=== PATIENT | male | born 1965 | race Two or more races ===

== ENCOUNTER → 2024-12-25 | Day surgery (SDC) | payer MEDICAID ==
[2024-12-24 14:41] LABS: Urine Bacteria None Seen /hpf (None Seen)
[2024-12-24 14:43] LABS: Basophils # (auto) 0 10 ^3/uL (0-0.2); Basophils % (auto) 0.7 % (0.0-2.0); Eosinophils # (auto) 0.1 10 ^3/uL (0-0.8); Eosinophils % (auto) 1.8 % (0.0-7.0); Hematocrit 44.9 % (41.0-53.0); Hemoglobin 15.4 g/dL (13.5-17.5); Lymphocytes # (auto) 1.5 10 ^3/uL (0.4-5.4); Lymphocytes % (auto) 30.7 % (10.0-50.0); Mean Corpuscular Hemoglobin 30.3 pg (28.0-32.0); Mean Corpuscular Hgb Conc. 34.2 g/dL (32.0-36.0); Mean Corpuscular Volume 88.6 fL (80.0-100.0); Monocytes # (auto) 0.3 10 ^3/uL (0-1.3); Monocytes % (auto) 6.5 % (0.0-12.0); Neutrophils # (auto) 2.9 10 ^3/uL (1.6-8.6); Neutrophils % (auto) 60.3 % (37.0-80.0); Nucleated Red Blood Cells % 0.1 %; Platelet Count (auto) 188 10^3/uL (140-450); Red Blood Cells 5.07 10^6/uL (4.5-5.90); Red Cell Distribution Width 13.6 % (11.8-14.3); White Blood Cell 4.8 10^3/uL (4.4-10.8)
[2024-12-24 14:49] LABS: Urine Blood Negative /uL (Negative); Urine Clarity Clear (Clear); Urine Color Light-Yellow (Yellow); Urine Protein, UAD Negative (Negative); Urine Specific Gravity 1.007 (1.001-1.035); Urine Squamous Epithelial Cell None Seen /hpf (<5); Urine Urobilinogen Normal (Negative); Urine WBC < 1 /HPF (0-3); Urine pH 5.5 (5.0-9.0)
[2024-12-24 14:59] LABS: INR 0.98 (0.9-1.15); Partial Thromboplastin Time 25.9 SEC (24.5-34.5); Prothrombin Time 10.4 sec (9.3-11.8)
[2024-12-24 15:45] LABS: Alanine Aminotransferase 34 U/L (7-40); Alkaline Phosphatase 57 U/L (46-116); Anion Gap 8 (5-15); Aspartate Aminotransferase 21 U/L (13-40); BUN/Creatinine Ratio 12.4 (10.0-20.0); Bilirubin, Total 0.5 mg/dL (0.2-1.0); Blood Urea Nitrogen 13 mg/dL (9-23); Chloride 103 mmol/L (98-107); Glucose 91 mg/dL (74-106); Potassium 4.3 mmol/L (3.5-5.1); Sodium 142 mmol/L (136-145); Total Protein 7.3 g/dL (5.7-8.2)
[2024-12-24 15:53] LABS: Carbon Dioxide 31 mmol/L (20-31)
[~2024-12-25] VITALS: Ht 180.3 cm; Wt 94.8 kg
[~2024-12-25] MED LIST: ACETAMINOPHEN IV 1000 MG/100ML (10MG/ML) IV PRN; ATOR20TA50 PO; BACITRACIN TOP OINT 1 UD PKG TOP ONE; CHOL200064 PO; DexAMETHasone SOD PHOS 10MG/1ML VIAL INJ ONE; HYDROmorphone HCL 2 MG/ML VL/or syr IV PRN; MEPERIDINE HCL (25 MG/ML) 1ML VIAL IV PRN; METF-489 PO; ONDANSETRON HCL 4 MG/2 ML VIAL IV ONE; ONDANSETRON HCL 4 MG/2 ML VIAL ONE; PROPOFOL 10 MG/ML 20 ML IV ONE; fentaNYL CITRATE 100 MCG/2 ML VL ONE
[2024-12-25] MEDS: ceFAZolin 2 GM/D5W50ml 50 ML IV ONE (11:30)
[2024-12-25] MEDS: LIDOCAINE W/ EPINEPHRINE 1% 20ML VIAL ONE (11:50)
[2024-12-25 11:58] VITALS: PULSE 70; RESP 10; TEMP 98.8; O2SAT 99
--- NOTE | 2024-12-25 12:04 | DVHNC2 ---
Procedure - OPERATIVE REPORT Pre-op. Diagnosis: Male Desired Sterilization Post-op. Diagnosis: Same as pre-op diagnosis Operation: Bilateral Vasectomy (No scalpel technique) Anesthesia: General Indications: INDICATION: Male Desired Sterilization CONSENT: The procedure was explained. Complications including but not limited to infection, bleeding, post-procedural swelling, potential for re-establishment of vas continuity and return of fertility were discussed. Informed consent was obtained. Details of Procedure: The patient was placed supine and general anesthesia is admininstered. His genitals were shaved, prepped, and draped in the surgical standard fashion. Using sterile techniques, bilateral vasectomy was performed using a non-scalpel technique after administration of local anesthetic using 1% Lidocaine with Epi. Both Vas Deferens were identified, brought to the surface of scrotal skin through midline puncture site, grasped, doubly clipped and ligated, the edges were fulgurated. Layer of adventitial tissue is placed between the two ends of the divided vas deferens. Hemostasis was obtained and both ends of the vas were returned to their respected locations inside the nica-scrotum. The skin puncture site is left open. Specimens: Bilateral Vas Segments Complications: None Findings: N/A Notes: DISPOSITION: Patient tolerated the procedure well and was discharged home. He will be prophylactically treated with appropriate antibiotics for 5-days. He has been instructed to refrain from sexual activity for 7-days, use scrotal support, and to apply ice pack to both nica-scrotum for 36-48 hours. He is then instructed to engage in at least 20 episodes of sexual ejaculatory episodes before obtaining a sperm analysis during a course of 4-6 weeks. Once he has been confirmed to have zero sperms count, he will then be considered sterile but he is required to use contraception until such time. Patient understands and will follow-up accordingly. Visit Code: Procedure Codes: 32788 VASECTOMY BILATERAL. notesEligibility :2024-12-24 @ 21:30:48 PDT : Cannot Process;. SAM IBANEZ MD December 25, 2024 12:04
--- NOTE | 2024-12-25 12:05 | DVHDS2 ---
New Physician D'charge PN Admitting Diagnosis Admitting Diagnosis vas consult Discharge Diagnosis same Operations or Procedures vasectomy Reason(s) For Hospitalization Surgery Treatment Plan Discharge Condition of Discharge Fair Disposition Home Discharge Instructions Diet: Regular Activity: Light activity Activity comment: Scrotal support x1 week No sexual activity x1 week Medications: Given Follow Up Care Follow Up/Referral: Two months for sperm count Discharge Statement: "Patient was advised to return to the ER or call 911 if any headaches, dizziness, shortness of breath, chest pain, abdominal pain, bleeding, fevers, or worsening of medical condition. Patient was counseled about treatment plan, medications, possible side effects, patient�verbalized understanding. All questions were answered to the best of my ability. This discharge took greater then 30 minutes in planning, reviewing documentation, counseling the patient, and discussing with other team members." SAM IBANEZ MD December 25, 2024 12:05
[2024-12-25 12:28] VITALS: BP 119/69; PULSE 61; RESP 16; O2SAT 96
== END | disposition home or self-care (01) ==
LOC: SUR 09:30
PROVIDERS: ATTEND Urology
DX: Z30.2 Encounter for sterilization (principal); E11.9 Type 2 diabetes mellitus without complications; E78.5 Hyperlipidemia, unspecified; Z79.84 Long term (current) use of oral hypoglycemic drugs; Z90.49 Acquired absence of other specified parts of digestive tract; Z98.890 Other specified postprocedural states
CPT/HCPCS: 36415; 55250; 80053; 81001; 82962; 85025; 85610; 85730; 87086; 88305; J0690; J1100; J2405; J2704; J3010